=== PATIENT | female | born 1955 | race Caucasian/White ===

== ENCOUNTER → 2019-07-03 | Outpatient (CLI) | payer BC | LOC: COL.RAD 09:29 | DX: M75.01 Adhesive capsulitis of right shoulder (principal); M54.12 Radiculopathy, cervical region | CPT/HCPCS: J3301; Q9967 ==

== ENCOUNTER 2020-04-24 16:34 | Emergency (ER) | payer BC ==
[~2020-04-24] VITALS: Ht 167.6 cm; Wt 72.7 kg
[2020-04-24 16:37] VITALS: TEMP 98.2
[2020-04-24] MEDS ORDERED: LOTENSIN 1010 MG/TAB PO (16:45)
[2020-04-24] MEDS ORDERED: MOTRIN 400400 MG/TAB PO (16:46)
[2020-04-24] MEDS ORDERED: CEPHALEXIN500 M1 PO (17:05)
[2020-04-24 17:06] VITALS: BP 143/68; PULSE 76
== END 2020-04-24 17:15 | disposition home or self-care (01) ==
LOC: COL.ER 16:34
DX: T63.461A Toxic effect of venom of wasps, accidental (unintentional), initial encounter (principal)